=== PATIENT | female | born 1995 | race Caucasian/White ===

== ENCOUNTER 2018-01-06 15:37 | Emergency (ER) | payer BC, OTHER ==
[~2018-01-06] VITALS: Ht 177.8 cm; Wt 95.5 kg
[~2018-01-06 15:37] MED LIST: NITR100C11 PO
[2018-01-06 15:46] VITALS: BP 159/102
[2018-01-06] MEDS ORDERED: LORazepam 1 MG tablet PO ONE (15:55)
[2018-01-06] MEDS ORDERED: FLUO20CA39 PO (20:23)
== END 2018-01-06 20:42 | disposition home or self-care (01) ==
LOC: EEVIPCON 15:37 → ER 15:38
DX: F41.9 Anxiety disorder, unspecified (principal); R11.2 Nausea with vomiting, unspecified; Z88.0 Allergy status to penicillin; Z79.899 Other long term (current) drug therapy
CPT/HCPCS: 99284

== ENCOUNTER 2019-03-22 16:58 | Emergency (ER) | payer BC, MEDICAID, OTHER ==
[~2019-03-22] VITALS: Ht 175.3 cm; Wt 102.3 kg
[~2019-03-22 16:58] MED LIST changes: +ONDA8TAB9 PO
[2019-03-22 17:49] LABS: BASOPHILS # (AUTO) 0.1 X10'3 (0-0.2); BASOPHILS % (AUTO) 0.4 % (0-1); EOSINOPHILS % (AUTO) 0 % (0-6); HEMATOCRIT 43.6 % (35.0-45.0); HEMOGLOBIN 14.1 g/dl (12.0-16.0); LYMPHOCYTES # (AUTO) 1.2 X10'3 (1.1-4.8); LYMPHOCYTES % (AUTO) 7.9 % (21-51); MEAN CORPUSCULAR HEMOGLOBIN 29.4 PG (27.0-31.0); MEAN CORPUSCULAR HGB CONC 32.4 g/dL (33.0-36.5); MEAN CORPUSCULAR VOLUME 90.8 FL (78-98); MEAN PLATELET VOLUME 8.5 FL (7.4-10.4); MONOCYTES # (AUTO) 0.2 X10'3 (0-0.9); MONOCYTES % (AUTO) 1.2 % (2-12); NEUTROPHILS # (AUTO) 13.4 X10'3 (1.8-7.7); NEUTROPHILS % (AUTO) 90.5 % (42-75); PLATELET COUNT 339 X10'3 (140-440); RED BLOOD COUNT 4.81 X10'6 (4.20-5.60); RED CELL DISTRIBUTION WIDTH 13.8 % (11.5-14.5); WHITE BLOOD COUNT 14.8 X10'3 (4.5-11.0)
[2019-03-22 18:02] LABS: ALANINE AMINOTRANSFERASE 39 U/L (12-78); ALBUMIN 4.2 G/DL (3.4-5.0); ALKALINE PHOSPHATASE 88 IU/L (46-116); AMYLASE 36 U/L (25-115); ANION GAP 13 (8-16); ASPARTATE AMINO TRANSFERASE 19 U/L (10-37); BILIRUBIN,TOTAL 0.3 MG/DL (0.1-1.0); BLOOD UREA NITROGEN 13 MG/DL (7-18); CHLORIDE 104 MMOL/L (99-107); CREATININE 0.81 MG/DL (0.40-0.90); GLUCOSE 127 MG/DL (70-104); LIPASE 122 U/L (73-393); POTASSIUM 3.7 MMOL/L (3.5-5.1); SODIUM 141 MMOL/L (135-145); TOTAL PROTEIN 8.5 G/DL (6.4-8.2); eGFR 87 ML/MIN
[2019-03-22] MEDS ORDERED: ondansetron/PF 4mg/2ml inj IV ONE ×2 (18:25→19:25)
[2019-03-22] MEDS ORDERED: normal saline 1000ML IV soln IVB ONE (18:25)
[2019-03-22 19:10] LABS: URINE HCG NEGATIVE (NEG)
[2019-03-22 19:17] LABS: CLARITY,URINE CLEAR (Clear); COLOR,URINE YELLOW (Yellow); GLUCOSE, URINE NEGATIVE (Neg); KETONES,URINE 40 mg/dl (Neg); LEUKOCYTE ESTERASE ,URINE NEGATIVE (Neg); NITRITES, URINE NEGATIVE (Neg); OCCULT BLOOD,URINE NEGATIVE (Neg); PH,URINE 6.5 (4.8-8.0); PROTEIN,URINE 30 mg/dl (Neg); UROBILINOGEN,URINE 0.2 E.U/dL (0.2-1.0)
[2019-03-22] MEDS ORDERED: iohexol 300mg/ml 100ml inj. ONE (19:18)
[2019-03-22 19:19] LABS: UA COLLECTION TYPE CLN CATCH MIDSTREAM
[2019-03-22 19:22] LABS: MUCUS STRANDS MANY /LPF (Neg); SQUAMOUS EPITHELIAL CELL,UR MANY /LPF (FEW)
[2019-03-22 19:23] LABS: BACTERIA,URINE FEW /HPF (Neg); RBC,URINE 0-2 /HPF (0-2); WBC,URINE 0-4 /HPF (0-4)
[2019-03-22] MEDS ORDERED: metoclopramide 5 mg/ml inj IV ONE (20:45)
[2019-03-22] MEDS ORDERED: ketorolac trometh. 30mg/ml inj. IV ONE (20:45)
[2019-03-22] MEDS ORDERED: ONDA4TAB6 PO (20:54)
[2019-03-22] MEDS ORDERED: HYDR-4383 PO (20:54)
[2019-03-22 21:16] VITALS: BP 112/93
== END 2019-03-22 21:18 | disposition home or self-care (01) ==
LOC: ER 16:58 → EEVIPCON 16:58 → ER 21:18
DX: A08.4 Viral intestinal infection, unspecified (principal); R10.30 Lower abdominal pain, unspecified; R11.2 Nausea with vomiting, unspecified; Z88.0 Allergy status to penicillin
CPT/HCPCS: 36415; 74177; 80053; 81001; 81025; 82150; 83690; 85025; 85610; 96374; 96375; 96376; 99284; J1885; J2405; J2765; J7030; Q9967

== ENCOUNTER 2019-03-24 00:18 | Emergency (ER) | payer BC ==
[~2019-03-24] VITALS: Ht 175.3 cm; Wt 102.3 kg
[~2019-03-24 00:18] MED LIST changes: +HYDR-4383 PO; +ONDA4TAB6 PO
[2019-03-24] MEDS ORDERED: morphine 4 MG/ML inj SYRINge IV PRN (00:40)
[2019-03-24] MEDS ORDERED: normal saline 1000ML IV soln IVB ONE (00:40)
[2019-03-24] MEDS ORDERED: ondansetron/PF 4mg/2ml inj IV ONE (00:40)
[2019-03-24 00:59] LABS: BASOPHILS % (AUTO) 0.3 % (0-1); EOSINOPHILS % (AUTO) 0.1 % (0-6); HEMATOCRIT 38.8 % (35.0-45.0); HEMOGLOBIN 13.1 g/dl (12.0-16.0); LYMPHOCYTES # (AUTO) 1.5 X10'3 (1.1-4.8); LYMPHOCYTES % (AUTO) 11.9 % (21-51); MEAN CORPUSCULAR HEMOGLOBIN 30.4 PG (27.0-31.0); MEAN CORPUSCULAR HGB CONC 33.8 g/dL (33.0-36.5); MEAN CORPUSCULAR VOLUME 89.9 FL (78-98); MEAN PLATELET VOLUME 8.5 FL (7.4-10.4); MONOCYTES # (AUTO) 0.3 X10'3 (0-0.9); MONOCYTES % (AUTO) 2.4 % (2-12); NEUTROPHILS # (AUTO) 10.8 X10'3 (1.8-7.7); NEUTROPHILS % (AUTO) 85.3 % (42-75); PLATELET COUNT 278 X10'3 (140-440); RED BLOOD COUNT 4.32 X10'6 (4.20-5.60); WHITE BLOOD COUNT 12.7 X10'3 (4.5-11.0)
[2019-03-24 01:11] LABS: ALANINE AMINOTRANSFERASE 31 U/L (12-78); ALBUMIN/GLOBULIN RATIO 1.1 (1.1-1.5); ALKALINE PHOSPHATASE 77 IU/L (46-116); ANION GAP 10 (8-16); ASPARTATE AMINO TRANSFERASE 12 U/L (10-37); BILIRUBIN,TOTAL 0.4 MG/DL (0.1-1.0); BLOOD UREA NITROGEN 18 MG/DL (7-18); BUN/CREATININE RATIO 21.4 (6.6-38.0); CHLORIDE 105 MMOL/L (99-107); CREATININE 0.84 MG/DL (0.40-0.90); GLUCOSE 117 MG/DL (70-104); LIPASE 110 U/L (73-393); POTASSIUM 3.4 MMOL/L (3.5-5.1); SODIUM 141 MMOL/L (135-145); TOTAL CARBON DIOXIDE 26.3 MMOL/L (24-32); TOTAL PROTEIN 7.8 G/DL (6.4-8.2); eGFR 83 ML/MIN
[2019-03-24] MEDS ORDERED: diphenhydrAMINE 50 mg/ml inj IV ONE (01:15)
[2019-03-24] MEDS ORDERED: proCHLORperazine 10 MG/2 ml inj IV ONE (01:15)
[2019-03-24] MEDS ORDERED: PROC-8 PO (02:54)
[2019-03-24 03:08] VITALS: BP 106/83
[2019-03-24 03:10] LABS: CLARITY,URINE CLEAR (Clear); COLOR,URINE YELLOW (Yellow); GLUCOSE, URINE NEGATIVE (Neg); KETONES,URINE 40 mg/dl (Neg); LEUKOCYTE ESTERASE ,URINE SMALL (Neg); NITRITES, URINE NEGATIVE (Neg); OCCULT BLOOD,URINE NEGATIVE (Neg); PROTEIN,URINE NEGATIVE (Neg); UROBILINOGEN,URINE 0.2 E.U/dL (0.2-1.0)
[2019-03-24 03:11] LABS: URINE HCG NEGATIVE (NEG)
[2019-03-24 03:15] LABS: UA COLLECTION TYPE VOIDED
[2019-03-24 03:18] LABS: MUCUS STRANDS MODERATE /LPF (Neg)
[2019-03-24 03:19] LABS: BACTERIA,URINE FEW /HPF (Neg); RBC,URINE 0-2 /HPF (0-2); SQUAMOUS EPITHELIAL CELL,UR MODERATE /LPF (FEW); WBC,URINE 0-4 /HPF (0-4)
== END 2019-03-24 03:17 | disposition home or self-care (01) ==
LOC: ER 00:19
DX: R11.2 Nausea with vomiting, unspecified (principal); R19.7 Diarrhea, unspecified; R10.31 Right lower quadrant pain; Z88.0 Allergy status to penicillin; Z79.899 Other long term (current) drug therapy
CPT/HCPCS: 36415; 80053; 81001; 81025; 83690; 85025; 85610; 87088; 96361; 96374; 96375; 99283; J0780; J1200; J2270; J2405; J7030

== ENCOUNTER 2019-09-04 06:59 | Emergency (ER) | payer BC, OTHER ==
[~2019-09-04] VITALS: Ht 172.7 cm; Wt 90.0 kg
[~2019-09-04 06:59] MED LIST changes: +PROC-8 PO
[2019-09-04 07:00] VITALS: BP 151/88
[2019-09-04] MEDS ORDERED: ibuprofen tablet 400 MG TABLET PO ONE (07:15)
[2019-09-04] MEDS ORDERED: AZIT250T83 PO (07:28)
[2019-09-04] MEDS ORDERED: azithromycin 250mg tablet PO ONE (07:35)
== END 2019-09-04 07:46 | disposition home or self-care (01) ==
LOC: ER 06:59
DX: J06.9 Acute upper respiratory infection, unspecified (principal); M54.5 Low back pain; Z86.2 Personal history of diseases of the blood and blood-forming organs and certain disorders involving the immune mechanism; Z88.0 Allergy status to penicillin; Z79.899 Other long term (current) drug therapy
CPT/HCPCS: 71046; 99283

== ENCOUNTER 2019-11-02 10:18 | Emergency (ER) | payer OTHER ==
[~2019-11-02] VITALS: Ht 172.7 cm; Wt 90.9 kg
[2019-11-02 10:36] LABS: BASOPHILS # (AUTO) 0.1 X10'3 (0-0.2); EOSINOPHILS # (AUTO) 0.2 X10'3 (0-0.9); EOSINOPHILS % (AUTO) 1.5 % (0-6); HEMATOCRIT 41.5 % (35.0-45.0); LYMPHOCYTES # (AUTO) 1.7 X10'3 (1.1-4.8); LYMPHOCYTES % (AUTO) 13.8 % (21-51); MEAN CORPUSCULAR HEMOGLOBIN 30.3 PG (27.0-31.0); MEAN CORPUSCULAR HGB CONC 33.7 g/dL (33.0-36.5); MEAN CORPUSCULAR VOLUME 89.9 FL (78-98); MEAN PLATELET VOLUME 8.5 FL (7.4-10.4); MONOCYTES # (AUTO) 0.3 X10'3 (0-0.9); MONOCYTES % (AUTO) 2.5 % (2-12); NEUTROPHILS # (AUTO) 10.2 X10'3 (1.8-7.7); NEUTROPHILS % (AUTO) 81.2 % (42-75); PLATELET COUNT 316 X10'3 (140-440); RED BLOOD COUNT 4.61 X10'6 (4.20-5.60); RED CELL DISTRIBUTION WIDTH 13.7 % (11.5-14.5); WHITE BLOOD COUNT 12.6 X10'3 (4.5-11.0)
[2019-11-02 10:52] LABS: ALANINE AMINOTRANSFERASE 15 U/L (12-78); ALBUMIN 4.3 G/DL (3.4-5.0); ALBUMIN/GLOBULIN RATIO 1.2 (1.1-1.5); ALKALINE PHOSPHATASE 81 IU/L (46-116); AMYLASE 24 U/L (25-115); ANION GAP 13 (8-16); ASPARTATE AMINO TRANSFERASE 14 U/L (10-37); BILIRUBIN,TOTAL 0.4 MG/DL (0.1-1.0); BLOOD UREA NITROGEN 10 MG/DL (7-18); BUN/CREATININE RATIO 13.5 (6.6-38.0); CALCIUM 9.9 MG/DL (8.5-10.1); CHLORIDE 105 MMOL/L (99-107); CREATININE 0.74 MG/DL (0.40-0.90); GLUCOSE 139 MG/DL (70-104); LIPASE 95 U/L (73-393); POTASSIUM 3.9 MMOL/L (3.5-5.1); SODIUM 143 MMOL/L (135-145); TOTAL PROTEIN 7.8 G/DL (6.4-8.2); eGFR > 90 ML/MIN
[2019-11-02] MEDS ORDERED: ondansetron/PF 4mg/2ml inj IV ONE ×2 (11:10→14:10)
[2019-11-02] MEDS ORDERED: normal saline 1000ml 1,000 ML IV ONE (11:10)
[2019-11-02 12:27] LABS: URINE HCG NEGATIVE (NEG)
[2019-11-02] MEDS ORDERED: proCHLORperazine 10 MG/2 ml inj IV ONE (12:30)
[2019-11-02] MEDS ORDERED: LORazepam 2 mg/ml vial IV ONE (12:30)
[2019-11-02] MEDS ORDERED: diphenhydrAMINE 50 mg/ml inj IV ONE (12:30)
[2019-11-02 12:52] LABS: CLARITY,URINE SLIGHTLY CLOUDY (Clear); COLOR,URINE YELLOW (Yellow); GLUCOSE, URINE NEGATIVE (Neg); KETONES,URINE >=80 mg/dl (Neg); LEUKOCYTE ESTERASE ,URINE NEGATIVE (Neg); NITRITES, URINE NEGATIVE (Neg); OCCULT BLOOD,URINE NEGATIVE (Neg); PH,URINE 6.5 (4.8-8.0); PROTEIN,URINE TRACE mg/dl (Neg); UROBILINOGEN,URINE 0.2 E.U/dL (0.2-1.0)
[2019-11-02 12:53] LABS: UA COLLECTION TYPE CLN CATCH MIDSTREAM
[2019-11-02 13:08] LABS: BACTERIA,URINE FEW /HPF (Neg); RBC,URINE NONE SEEN /HPF (0-2); WBC,URINE 0-4 /HPF (0-4)
[2019-11-02 13:09] LABS: MUCUS STRANDS MANY /LPF (Neg); SQUAMOUS EPITHELIAL CELL,UR FEW /LPF (FEW)
--- NOTE | 2019-11-02 14:15 | NUR ---
PT DRANK APPROX 6OZ OF WATER AND WAS TOLLERATING. PT SAT UP AFTERWARDS AND NOW WITH HICCUPS AND NAUSEA. REPORTED TO PROVIDER ALVAREZ, PT TO RECEIVE ANOTHER DOSE OF ZOFRAN AND AFTERWARD TO TRY AND EAT A SALTINE CRACKER.
[2019-11-02] MEDS ORDERED: PROM12.512 PO (15:24)
[2019-11-02 15:52] VITALS: BP 143/76
[2019-11-05] MEDS ORDERED: ONDA4TAB6 PO (00:09)
== END 2019-11-02 15:56 | disposition home or self-care (01) ==
LOC: ER 10:18 → EEVIPCON 10:18 → ER 15:56
DX: K52.9 Noninfective gastroenteritis and colitis, unspecified (principal); R10.31 Right lower quadrant pain; R10.13 Epigastric pain; R11.10 Vomiting, unspecified; Z88.0 Allergy status to penicillin
CPT/HCPCS: 36415; 80053; 81001; 81025; 82150; 83690; 85025; 87502; 87503; 96361; 96374; 96375; 96376; 99284; J0780; J1200; J2060; J2405; J7030

== ENCOUNTER 2019-11-06 07:15 | Emergency (ER) | payer OTHER ==
[~2019-11-06] VITALS: Ht 172.7 cm; Wt 90.9 kg
[~2019-11-06 07:15] MED LIST changes: +PROM12.512 PO
[2019-11-06] MEDS ORDERED: metoclopramide 5 mg/ml inj IV ONE (07:20)
[2019-11-06] MEDS ORDERED: normal saline 1000ML IV soln IVB ONE (07:20)
[2019-11-06] MEDS ORDERED: morphine 2 MG/ML inj. syringe IV ONE ×2 (08:15→09:55)
--- NOTE | 2019-11-06 09:18 | NUR ---
Pt states that she is getting nauseous again and the pain is increasing again. Dr Miller made aware.
[2019-11-06] MEDS ORDERED: ondansetron/PF 4mg/2ml inj IV ONE (09:20)
--- NOTE | 2019-11-06 09:41 | NUR ---
Pt given ice chips.
[2019-11-06] MEDS ORDERED: diphenoxylate/atropine tablet (Lomotil) PO ONE (09:55)
[2019-11-06] MEDS ORDERED: PROC25SU31 RC (11:23)
[2019-11-06 11:54] VITALS: BP 130/68
== END 2019-11-06 11:55 | disposition home or self-care (01) ==
LOC: ER 07:15
DX: T62.8X1A Toxic effect of other specified noxious substances eaten as food, accidental (unintentional), initial encounter (principal); K52.9 Noninfective gastroenteritis and colitis, unspecified; R11.2 Nausea with vomiting, unspecified; E66.9 Obesity, unspecified; Z88.0 Allergy status to penicillin; Y92.89 Other specified places as the place of occurrence of the external cause
CPT/HCPCS: 96361; 96374; 96375; 96376; 99285; J2270; J2405; J2765; J7030; 99284

== ENCOUNTER 2019-11-08 08:38 | Inpatient (IN) | payer OTHER ==
[~2019-11-08] VITALS: Ht 172.7 cm; Wt 90.9 kg
[~2019-11-08 08:38] MED LIST changes: +PROC25SU31 RC
[2019-11-08] MEDS ORDERED: ringers solution, lacted 1,000 ML IV ONE (09:00)
[2019-11-08 09:30] LABS: BASOPHILS % (AUTO) 0.4 % (0-1); EOSINOPHILS # (AUTO) 0.2 X10'3 (0-0.9); EOSINOPHILS % (AUTO) 1.9 % (0-6); HEMATOCRIT 43.4 % (35.0-45.0); HEMOGLOBIN 14.5 g/dl (12.0-16.0); LYMPHOCYTES # (AUTO) 1.6 X10'3 (1.1-4.8); LYMPHOCYTES % (AUTO) 12.9 % (21-51); MEAN CORPUSCULAR HEMOGLOBIN 30.1 PG (27.0-31.0); MEAN CORPUSCULAR HGB CONC 33.3 g/dL (33.0-36.5); MEAN CORPUSCULAR VOLUME 90.4 FL (78-98); MEAN PLATELET VOLUME 9.1 FL (7.4-10.4); MONOCYTES # (AUTO) 0.5 X10'3 (0-0.9); MONOCYTES % (AUTO) 3.8 % (2-12); NEUTROPHILS # (AUTO) 10.2 X10'3 (1.8-7.7); PLATELET COUNT 297 X10'3 (140-440); RED CELL DISTRIBUTION WIDTH 14.3 % (11.5-14.5); WHITE BLOOD COUNT 12.6 X10'3 (4.5-11.0)
[2019-11-08] MEDS ORDERED: ondansetron/PF 4mg/2ml inj IV ONE (09:55)
[2019-11-08] MEDS: morphine 4 MG/ML inj SYRINge IV PRN ×2 (10:12→16:52)
[2019-11-08 10:20] LABS: URINE HCG NEGATIVE (NEG)
[2019-11-08 10:22] LABS: CLARITY,URINE CLEAR (Clear); COLOR,URINE YELLOW (Yellow); GLUCOSE, URINE NEGATIVE (Neg); KETONES,URINE 15 mg/dl (Neg); LEUKOCYTE ESTERASE ,URINE NEGATIVE (Neg); NITRITES, URINE NEGATIVE (Neg); OCCULT BLOOD,URINE NEGATIVE (Neg); PH,URINE 7.5 (4.8-8.0); PROTEIN,URINE NEGATIVE (Neg); UROBILINOGEN,URINE 0.2 E.U/dL (0.2-1.0)
[2019-11-08 10:23] LABS: UA COLLECTION TYPE CLN CATCH MIDSTREAM
--- NOTE | 2019-11-08 10:28 | NUR ---
TO CT SCAN VIA WHEELCHAIR WITH TECH
--- NOTE | 2019-11-08 10:36 | NUR ---
back from ct scan in stable condtion.
[2019-11-08] MEDS ORDERED: fentaNYL/PF 50MCG/1 ML 2ML syringe IV ONE (10:45)
[2019-11-08 10:50] LABS: ALANINE AMINOTRANSFERASE 15 U/L (12-78); ALBUMIN 4.1 G/DL (3.4-5.0); ALBUMIN/GLOBULIN RATIO 1.2 (1.1-1.5); ALKALINE PHOSPHATASE 77 IU/L (46-116); ANION GAP 9 (8-16); ASPARTATE AMINO TRANSFERASE 11 U/L (10-37); BILIRUBIN,TOTAL 0.3 MG/DL (0.1-1.0); BLOOD UREA NITROGEN 7 MG/DL (7-18); BUN/CREATININE RATIO 9.2 (6.6-38.0); CALCIUM 9.3 MG/DL (8.5-10.1); CHLORIDE 105 MMOL/L (99-107); CREATININE 0.76 MG/DL (0.40-0.90); GLUCOSE 110 MG/DL (70-104); LIPASE 102 U/L (73-393); MAGNESIUM 1.9 MG/DL (1.5-2.4); POTASSIUM 3.3 MMOL/L (3.5-5.1); SODIUM 141 MMOL/L (135-145); TOTAL CARBON DIOXIDE 26.6 MMOL/L (24-32); TOTAL PROTEIN 7.5 G/DL (6.4-8.2); eGFR > 90 ML/MIN
[2019-11-08] MEDS ORDERED: metroNIDAZOLE-Flagyl 500mg/NS 100 ML IV STA (11:01)
[2019-11-08] MEDS ORDERED: ciprofloxacin lact 400MG/200ML 200 ML IV STA (11:01)
[2019-11-08] MEDS ORDERED: acetaminophen 325mg tablet PO PRN ×2 (11:45)
[2019-11-08] MEDS ORDERED: HYDROcodone/acetaminophen 5mg/325mg tablet PO PRN (11:45)
[2019-11-08] MEDS ORDERED: morphine 2 MG/ML inj. syringe IV PRN ×2 (11:45)
[2019-11-08] MEDS ORDERED: mag hydrox/Alum hydrox/simeth 30ml oral suspension PO PRN (11:45)
[2019-11-08] MEDS ORDERED: magnesium hydroxide 30ml (MOM) UD suspension PO PRN (11:45)
[2019-11-08] MEDS ORDERED: NO HOME MEDS (13:13)
[2019-11-08] MEDS: dextrose 5%-1/2 normal saline 1,000 ML IV SCH ×2 (13:13→19:52)
[2019-11-08] MEDS: ondansetron/PF 4mg/2ml inj IV PRN ×2 (14:07→20:56)
--- NOTE | 2019-11-08 16:11 | NUR ---
Received report from Julianna RN in ER Via phone will assume patient care when patient comes to the floor. Julianna will ask Dr Fragoso re: electrolye replacement protocol K+3.3. I will call RN when room is ready.
[2019-11-08] MEDS: metoclopramide 5 mg/ml inj IV PRN (16:52)
[2019-11-08 17:00] VITALS: BP 154/84
[2019-11-08] MEDS ORDERED: potassium Cl 20 mEq SR tablet PO PRN (18:40)
--- NOTE | 2019-11-08 19:00 | NUR ---
Problems reprioritized. Patient report given, questions answered & plan of care reviewed with Karrie PETERSON.
[2019-11-08] MEDS: levoFLOXACIN-Levaquin 500mg/D5 100 ML IV SCH (19:51)
[2019-11-08 20:00] VITALS: BP_SYST 112; BP_SYST 129; BP_SYST 143; BP_DIAS 59; BP_DIAS 75; BP_DIAS 90
[2019-11-08] MEDS: potassium CL 10mEq/100ml bag 100 ML IV PRN ×2 (20:07→23:29)
--- NOTE | 2019-11-08 20:51 | NUR ---
Patient in room [facility]. I have received report from KRISTEN Tee and had the opportunity to ask questions and assume patient care. Addendum: 11/08/19 at 2051 by Karrie Kyle RN Amended: Links added.
[2019-11-08] MEDS: metroNIDAZOLE-Flagyl 500mg/NS 100 ML IV SCH (23:27)
[2019-11-09] MEDS: Melatonin 3mg tablet PO SCH ×2 (00:22→21:00)
[2019-11-09 00:49] VITALS: BP 119/57
[2019-11-09] MEDS: HYDROcodone/acetaminophen 10/325mg tab PO PRN (02:44)
[2019-11-09 05:30] LABS: BASOPHILS % (AUTO) 0.5 % (0-1); EOSINOPHILS # (AUTO) 0.2 X10'3 (0-0.9); EOSINOPHILS % (AUTO) 1.8 % (0-6); HEMATOCRIT 39.6 % (35.0-45.0); HEMOGLOBIN 13.4 g/dl (12.0-16.0); LYMPHOCYTES # (AUTO) 2.4 X10'3 (1.1-4.8); LYMPHOCYTES % (AUTO) 23.8 % (21-51); MEAN CORPUSCULAR HEMOGLOBIN 30.8 PG (27.0-31.0); MEAN CORPUSCULAR HGB CONC 33.8 g/dL (33.0-36.5); MEAN CORPUSCULAR VOLUME 91.3 FL (78-98); MONOCYTES # (AUTO) 0.6 X10'3 (0-0.9); MONOCYTES % (AUTO) 5.8 % (2-12); NEUTROPHILS # (AUTO) 6.9 X10'3 (1.8-7.7); NEUTROPHILS % (AUTO) 68.1 % (42-75); PLATELET COUNT 253 X10'3 (140-440); RED BLOOD COUNT 4.34 X10'6 (4.20-5.60); WHITE BLOOD COUNT 10.1 X10'3 (4.5-11.0)
[2019-11-09 05:33] LABS: ALBUMIN 3.5 G/DL (3.4-5.0); ANION GAP 7 (8-16); BLOOD UREA NITROGEN 4 MG/DL (7-18); BUN/CREATININE RATIO 5.8 (6.6-38.0); CALCIUM 8.8 MG/DL (8.5-10.1); CHLORIDE 106 MMOL/L (99-107); CREATININE 0.69 MG/DL (0.40-0.90); GLUCOSE 111 MG/DL (70-104); POTASSIUM 3.5 MMOL/L (3.5-5.1); SODIUM 140 MMOL/L (135-145); TOTAL CARBON DIOXIDE 26.6 MMOL/L (24-32); eGFR > 90 ML/MIN
--- NOTE | 2019-11-09 06:15 | NUR ---
Problems reprioritized. Patient report given, questions answered & plan of care reviewed with KRISTEN MYLES. Addendum: 11/09/19 at 0616 by Karrie Kyle RN Amended: Links added.
[2019-11-09 07:00] VITALS: BP 90/71
[2019-11-09] MEDS: ondansetron/PF 4mg/2ml inj IV PRN ×3 (07:46→22:42)
[2019-11-09] MEDS: metroNIDAZOLE-Flagyl 500mg/NS 100 ML IV SCH (07:46)
[2019-11-09] MEDS: levoFLOXACIN-Levaquin 500mg/D5 100 ML IV SCH (09:20)
[2019-11-09] MEDS: dextrose 5%-1/2 normal saline 1,000 ML IV SCH ×3 (09:20→20:15)
[2019-11-09] MEDS: metoclopramide 5 mg/ml inj IV PRN ×2 (09:49→18:31)
[2019-11-09 11:00] VITALS: BP 167/88
[2019-11-09] MEDS: morphine 2 MG/ML inj. syringe IV PRN ×3 (11:05→20:18)
[2019-11-09] MEDS: metroNIDAZOLE 500mg tablet PO SCH (16:34)
--- NOTE | 2019-11-09 18:06 | NUR ---
Problems reprioritized. Patient report given, questions answered & plan of care reviewed with KRISTEN Silva.
--- NOTE | 2019-11-09 19:13 | NUR ---
Patient in room [facility]. I have received report from KRISTEN Cruz and had the opportunity to ask questions and assume patient care. Addendum: 11/09/19 at 1914 by Karrie Kyle RN Amended: Links added.
[2019-11-09 20:00] VITALS: BP 145/91
[2019-11-09] MEDS: lactobacillus rhamnosus 10,000 MMU CELLS/CAPSULE PO SCH (20:00)
[2019-11-09] MEDS: proCHLORperazine 10 MG/2 ml inj IV PRN (20:16)
[2019-11-09] MEDS ORDERED: LORazepam 1 MG tablet PO ONE (22:25)
[2019-11-10] MEDS: metroNIDAZOLE 500mg tablet PO SCH
[2019-11-10 00:58] VITALS: BP 155/98
[2019-11-10] MEDS: metoclopramide 5 mg/ml inj IV PRN ×2 (05:10→14:05)
[2019-11-10] MEDS: morphine 2 MG/ML inj. syringe IV PRN ×2 (05:15→13:23)
[2019-11-10] MEDS: dextrose 5%-1/2 normal saline 1,000 ML IV SCH ×2 (05:16→19:28)
[2019-11-10 05:57] LABS: BASOPHILS % (AUTO) 0.4 % (0-1); EOSINOPHILS # (AUTO) 0.1 X10'3 (0-0.9); EOSINOPHILS % (AUTO) 1.1 % (0-6); HEMATOCRIT 40.7 % (35.0-45.0); HEMOGLOBIN 13.7 g/dl (12.0-16.0); LYMPHOCYTES # (AUTO) 3.4 X10'3 (1.1-4.8); LYMPHOCYTES % (AUTO) 27.7 % (21-51); MEAN CORPUSCULAR HEMOGLOBIN 30.7 PG (27.0-31.0); MEAN CORPUSCULAR HGB CONC 33.7 g/dL (33.0-36.5); MEAN CORPUSCULAR VOLUME 91.1 FL (78-98); MEAN PLATELET VOLUME 8.9 FL (7.4-10.4); MONOCYTES # (AUTO) 0.7 X10'3 (0-0.9); MONOCYTES % (AUTO) 5.9 % (2-12); NEUTROPHILS # (AUTO) 7.9 X10'3 (1.8-7.7); NEUTROPHILS % (AUTO) 64.9 % (42-75); PLATELET COUNT 260 X10'3 (140-440); RED BLOOD COUNT 4.46 X10'6 (4.20-5.60); RED CELL DISTRIBUTION WIDTH 14.1 % (11.5-14.5); WHITE BLOOD COUNT 12.3 X10'3 (4.5-11.0)
[2019-11-10 06:24] LABS: ALBUMIN 3.5 G/DL (3.4-5.0); ANION GAP 8 (8-16); BLOOD UREA NITROGEN 3 MG/DL (7-18); BUN/CREATININE RATIO 4.3 (6.6-38.0); CALCIUM 9.2 MG/DL (8.5-10.1); CHLORIDE 106 MMOL/L (99-107); CREATININE 0.69 MG/DL (0.40-0.90); GLUCOSE 93 MG/DL (70-104); POTASSIUM 3.3 MMOL/L (3.5-5.1); SODIUM 143 MMOL/L (135-145); TOTAL CARBON DIOXIDE 28.9 MMOL/L (24-32); eGFR > 90 ML/MIN
--- NOTE | 2019-11-10 06:31 | NUR ---
Problems reprioritized. Patient report given, questions answered & plan of care reviewed with KRISTEN Dumont. Addendum: 11/10/19 at 0632 by Karrie Kyle RN Amended: Links added.
--- NOTE | 2019-11-10 06:41 | NUR ---
Patient in room [facility]. I have received report from VERONIKA PETERSON and had the opportunity to ask questions and assume patient care.
[2019-11-10 07:00] VITALS: BP 171/78
[2019-11-10] MEDS: lactobacillus rhamnosus 10,000 MMU CELLS/CAPSULE PO SCH ×2 (08:00→19:32)
[2019-11-10] MEDS: potassium CL 10mEq/100ml bag 100 ML IV PRN ×4 (08:28→19:26)
[2019-11-10] MEDS ORDERED: sincalide inj 1.8 MCG in normal saline 50ml IV soln 50 ML IV ONE (08:30)
[2019-11-10] MEDS: ondansetron/PF 4mg/2ml inj IV PRN ×2 (08:31→20:35)
[2019-11-10] MEDS: metroNIDAZOLE-Flagyl 500mg/NS 100 ML IV SCH ×2 (08:51→15:57)
[2019-11-10] MEDS: levoFLOXACIN-Levaquin 500mg/D5 100 ML IV SCH (09:41)
[2019-11-10] MEDS ORDERED: levoFLOXACIN 500mg tablet PO SCH (11:00)
[2019-11-10] MEDS: proCHLORperazine 10 MG/2 ml inj IV PRN (13:16)
[2019-11-10] MEDS ORDERED: LORazepam 2 mg/ml vial IV PRN (16:25)
--- NOTE | 2019-11-10 18:00 | NUR ---
Patient in room [facility]. I have received report from Julia PETERSON and had the opportunity to ask questions and assume patient care.
--- NOTE | 2019-11-10 18:30 | NUR ---
Problems reprioritized. Patient report given, questions answered & plan of care reviewed with LUCIO PETERSON.
[2019-11-10 20:00] VITALS: BP 128/70
[2019-11-10] MEDS: Melatonin 3mg tablet PO SCH (20:29)
[2019-11-11] VITALS (22 sets, daily range): BP systolic 104–149; BP diastolic 58–99
[2019-11-11] MEDS: morphine 2 MG/ML inj. syringe IV PRN ×4 (00:25→19:23)
[2019-11-11] MEDS: metroNIDAZOLE-Flagyl 500mg/NS 100 ML IV SCH ×4 (00:28→23:32)
[2019-11-11] MEDS: ondansetron/PF 4mg/2ml inj IV PRN ×3 (04:19→23:20)
[2019-11-11] MEDS: dextrose 5%-1/2 normal saline 1,000 ML IV SCH (05:26)
--- NOTE | 2019-11-11 06:09 | NUR ---
Problems reprioritized. Patient report given, questions answered & plan of care reviewed with Lily PETERSON.
[2019-11-11 06:15] LABS: BASOPHILS % (AUTO) 0.3 % (0-1); EOSINOPHILS # (AUTO) 0.1 X10'3 (0-0.9); EOSINOPHILS % (AUTO) 0.7 % (0-6); HEMATOCRIT 41.8 % (35.0-45.0); HEMOGLOBIN 14.2 g/dl (12.0-16.0); LYMPHOCYTES # (AUTO) 2.3 X10'3 (1.1-4.8); LYMPHOCYTES % (AUTO) 22.9 % (21-51); MEAN CORPUSCULAR HEMOGLOBIN 30.9 PG (27.0-31.0); MEAN CORPUSCULAR VOLUME 90.9 FL (78-98); MONOCYTES # (AUTO) 0.6 X10'3 (0-0.9); MONOCYTES % (AUTO) 6.1 % (2-12); PLATELET COUNT 252 X10'3 (140-440); RED CELL DISTRIBUTION WIDTH 14.1 % (11.5-14.5)
[2019-11-11 06:17] LABS: ALBUMIN 3.9 G/DL (3.4-5.0); ANION GAP 9 (8-16); BLOOD UREA NITROGEN 3 MG/DL (7-18); BUN/CREATININE RATIO 3.9 (6.6-38.0); CALCIUM 9.7 MG/DL (8.5-10.1); CHLORIDE 105 MMOL/L (99-107); CREATININE 0.76 MG/DL (0.40-0.90); GLUCOSE 118 MG/DL (70-104); POTASSIUM 3.1 MMOL/L (3.5-5.1); SODIUM 139 MMOL/L (135-145); TOTAL CARBON DIOXIDE 24.9 MMOL/L (24-32); eGFR > 90 ML/MIN
[2019-11-11] MEDS: levoFLOXACIN-Levaquin 500mg/D5 100 ML IV SCH (08:18)
[2019-11-11] MEDS: lactobacillus rhamnosus 10,000 MMU CELLS/CAPSULE PO SCH ×2 (08:19→20:00)
[2019-11-11] MEDS: potassium Cl 20 mEq SR tablet PO PRN ×3 (08:19→17:56)
[2019-11-11] MEDS: metoclopramide 5 mg/ml inj IV PRN ×2 (08:23→19:40)
[2019-11-11] MEDS: proCHLORperazine 10 MG/2 ml inj IV PRN (10:13)
[2019-11-11] MEDS: Potassium Cl inj 20 MEQ in ringers solution, lacted 1,000 ML IV SCH ×2 (12:47→19:56)
[2019-11-11] MEDS ORDERED: famotidine/PF 10 mg/ml inj IV ONE (13:00)
[2019-11-11] MEDS ORDERED: ceFAZolin 1000mg inj ONE (13:05)
[2019-11-11] MEDS ORDERED: BUPIVAcaine/PF 2.5 mg/ml (0.25%) 30ml vial ONE ×2 (13:05→13:15)
--- NOTE | 2019-11-11 13:19 | NUR ---
Pt. taken down to OR for sx.
--- NOTE | 2019-11-11 13:40 | NUR ---
Problems reprioritized. Patient report given, questions answered & plan of care reviewed with Albin PETERSON in recovery.
[2019-11-11] MEDS ORDERED: sevoflurane 250ml liquid IH ONE (13:48)
[2019-11-11] MEDS ORDERED: propofol inj 20 ML IV ONE (13:52)
[2019-11-11] MEDS ORDERED: rocuronium 10mg/ml inj IV ONE (13:52)
[2019-11-11] MEDS ORDERED: midazolam 2 mg/2 ml injection ONE (13:52)
[2019-11-11] MEDS ORDERED: fentaNYL/PF 50MCG/1 ML 2ML syringe ONE (13:52)
[2019-11-11] MEDS ORDERED: clindamycin phosphate 150mg/ml inj. ONE (14:05)
[2019-11-11] MEDS ORDERED: metoprolol tartrate 1mg/ml inj IV ONE (14:21)
[2019-11-11] MEDS ORDERED: ondansetron/PF 4mg/2ml inj IV PRN ×2 (14:30→14:50)
[2019-11-11] MEDS ORDERED: ringers solution, lacted 1,000 ML IV SCH (14:30)
[2019-11-11] MEDS ORDERED: morphine 2 MG/ML inj. syringe IV PRN (14:30)
[2019-11-11] MEDS ORDERED: proCHLORperazine 10 MG/2 ml inj IV PRN (14:30)
[2019-11-11] MEDS ORDERED: meperidine/PF 25mg/ml syringe IV PRN ×2 (14:30)
[2019-11-11] MEDS ORDERED: acetaminophen 1,000mg/100ml IV 100 ML IV ONE (14:40)
[2019-11-11] MEDS ORDERED: neostigmine methylsulfate 1 MG/ML 10ml vial ONE (14:42)
[2019-11-11] MEDS ORDERED: glycopyrrolate 0.2mg/ml inj ONE (14:42)
[2019-11-11] MEDS ORDERED: HYDROcodone/acetaminophen 10/325mg tab PO PRN (14:50)
--- NOTE | 2019-11-11 14:53 | NUR ---
Received from OR via surgical bed, accompanied by Anesthesiologist Alfonso and report given by Anesthesiolgist. Mask to 10L and all VS WNL, HR slightly tachy r/t to pain. Pt complains of some nausea will administer zofran, responding to questions, tylenol almost finished infusing. Pulses palpable, abdomen soft. SCDs on, no barbosa catheter.
[2019-11-11] MEDS ORDERED: meperidine/PF 25mg/ml syringe ONE (15:00)
[2019-11-11] MEDS: meperidine/PF 25mg/ml syringe IV PRN ×2 (15:06→15:18)
[2019-11-11] MEDS ORDERED: ondansetron/PF 4mg/2ml inj IM ONE (15:10)
[2019-11-11] MEDS ORDERED: ondansetron/PF 4mg/2ml inj IV ONE (15:15)
[2019-11-11] MEDS: morphine 4 MG/ML inj SYRINge IV PRN ×2 (15:43→16:08)
--- NOTE | 2019-11-11 15:55 | NUR ---
Called Dr Hamilton to request something else for pain and relayed pain meds received already but that patient remains uncomfortable. He states okay to give toradol 30mg IV. Orders placed, will administer.
[2019-11-11] MEDS ORDERED: ketorolac trometh. 30mg/ml inj. IV ONE (16:20)
--- NOTE | 2019-11-11 16:33 | NUR ---
Report called to receiving nurse. Transferred via surgical bed to [facility]. Belongings remain in patient's room. Special Issues communicated to receiving nurse Lily PETERSON. Post op VS remain WNL, BLL call light within reach, chart given to RN. Pain much more controlled after toradol given and patient states she is 4/10 more comfortable. Family at bedside.
--- NOTE | 2019-11-11 16:53 | NUR ---
Post ops started. Pt. stable, SCDs on and working. NA aware.
[2019-11-11] MEDS: HYDROcodone/acetaminophen 10/325mg tab PO PRN (17:24)
--- NOTE | 2019-11-11 18:00 | NUR ---
Patient in room [facility]. I have received report from Lily PETERSON and had the opportunity to ask questions and assume patient care.
--- NOTE | 2019-11-11 19:09 | NUR ---
Gave report to Jenn PETERSON.
[2019-11-11] MEDS: Melatonin 3mg tablet PO SCH (20:02)
[2019-11-11] MEDS: ringers solution, lacted 1,000 ML IV SCH (20:15)
[2019-11-12] VITALS: BP 147/95
[2019-11-12] MEDS: morphine 2 MG/ML inj. syringe IV PRN ×3 (00:38→06:43)
--- NOTE | 2019-11-12 06:35 | NUR ---
Patient in room [facility]. I have received report from Jenn PETERSON and had the opportunity to ask questions and assume patient care.
--- NOTE | 2019-11-12 06:49 | NUR ---
Problems reprioritized. Patient report given, questions answered & plan of care reviewed with Tiffanie PETERSON.
[2019-11-12 07:00] VITALS: BP 134/81
[2019-11-12] MEDS: levoFLOXACIN-Levaquin 500mg/D5 100 ML IV SCH (07:42)
[2019-11-12] MEDS: ringers solution, lacted 1,000 ML IV SCH (07:42)
[2019-11-12] MEDS: lactobacillus rhamnosus 10,000 MMU CELLS/CAPSULE PO SCH (07:42)
[2019-11-12] MEDS: metroNIDAZOLE-Flagyl 500mg/NS 100 ML IV SCH (08:42)
[2019-11-12] MEDS: HYDROcodone/acetaminophen 10/325mg tab PO PRN (08:42)
[2019-11-12] MEDS ORDERED: morphine 2 MG/ML inj. syringe IV PRN ×2 (10:05→10:25)
[2019-11-12] MEDS ORDERED: HYDROcodone/acetaminophen 5mg/325mg tablet PO PRN (10:25)
[2019-11-12] MEDS ORDERED: HYDROcodone/acetaminophen 10/325mg tab PO PRN (10:25)
[2019-11-12 12:00] VITALS: BP 135/77
[2019-11-12] MEDS ORDERED: METR-159 PO (14:29)
[2019-11-12] MEDS ORDERED: OMEP20CA15 PO (14:29)
[2019-11-12] MEDS ORDERED: ACET-1008 PO (14:29)
[2019-11-12] MEDS ORDERED: IBUP-860 PO (14:44)
--- NOTE | 2019-11-12 15:05 | NUR ---
Patient discharged at this time, patient taught all discharge instructions and dressing and bathing care. Medications called into [facility].
== END 2019-11-12 15:05 | disposition home or self-care (01) | DRG 419 ==
LOC: ER 08:38 → ED HOLD 11:48 → SUR 3N 17:02 → OBSVTOIN 11-09 14:00
PROVIDERS: ADMIT Internal Medicine; ATTEND Internal Medicine
PROC: 0FT44ZZ Resection of Gallbladder, Percutaneous Endoscopic Approach (ICD-10-PCS; principal; 2019-11-11 13:48)
DX: K82.8 Other specified diseases of gallbladder (principal); E86.0 Dehydration; E87.6 Hypokalemia; E66.9 Obesity, unspecified; K52.9 Noninfective gastroenteritis and colitis, unspecified; J45.909 Unspecified asthma, uncomplicated; Z88.0 Allergy status to penicillin; Z68.30 Body mass index [BMI] 30.0-30.9, adult
CPT/HCPCS: 96361; 96365; 96366; 96367; 96375; 96376; 99285; Z7506; Z7508; 36415; 74176; 76700; 78227; 80048; 80053; 81003; 81025; 82948; 83690; 83735; 84702; 85025; 85730; 86885; 86900; 86901; 87045; 87046; 87081; A4215; A4618; A7000; A9537; G0378; J0131; J0690; J0744; J0780; J1885; J1956; J2060; J2175; J2250; J2270; J2405; J2704; J2710; J2765; J3010; J3480; J3490; J7120

== ENCOUNTER 2019-11-16 12:56 | Inpatient (IN) | payer OTHER ==
[~2019-11-16] VITALS: Ht 172.7 cm; Wt 108.9 kg
[~2019-11-16 12:56] MED LIST changes: +ACET-1008 PO; -HYDR-4383 PO; +IBUP-860 PO; +METR-159 PO; -NITR100C11 PO; +OMEP20CA15 PO; -ONDA4TAB6 PO; -ONDA8TAB9 PO; -PROC-8 PO; -PROC25SU31 RC; -PROM12.512 PO
[2019-11-16] MEDS ORDERED: ondansetron 4mg rapidly disintigrating tab PO ONE (13:00)
[2019-11-16] MEDS ORDERED: normal saline 1000ML IV soln IVB ONE ×2 (13:10→18:50)
[2019-11-16] MEDS ORDERED: ondansetron/PF 4mg/2ml inj IV ONE ×3 (13:10→18:35)
[2019-11-16 13:53] LABS: BASOPHILS % (AUTO) 0.2 % (0-1); EOSINOPHILS # (AUTO) 0.2 X10'3 (0-0.9); EOSINOPHILS % (AUTO) 1.5 % (0-6); HEMATOCRIT 43.3 % (35.0-45.0); HEMOGLOBIN 14.3 g/dl (12.0-16.0); LYMPHOCYTES % (AUTO) 9.1 % (21-51); MEAN CORPUSCULAR HEMOGLOBIN 30.1 PG (27.0-31.0); MEAN CORPUSCULAR HGB CONC 33.1 g/dL (33.0-36.5); MEAN CORPUSCULAR VOLUME 90.9 FL (78-98); MEAN PLATELET VOLUME 8.9 FL (7.4-10.4); MONOCYTES # (AUTO) 0.3 X10'3 (0-0.9); MONOCYTES % (AUTO) 2.7 % (2-12); NEUTROPHILS # (AUTO) 9.7 X10'3 (1.8-7.7); NEUTROPHILS % (AUTO) 86.5 % (42-75); PLATELET COUNT 272 X10'3 (140-440); RED BLOOD COUNT 4.76 X10'6 (4.20-5.60); RED CELL DISTRIBUTION WIDTH 14.3 % (11.5-14.5); WHITE BLOOD COUNT 11.2 X10'3 (4.5-11.0)
[2019-11-16 14:02] LABS: ALANINE AMINOTRANSFERASE 28 U/L (12-78); ALBUMIN 4.1 G/DL (3.4-5.0); ALBUMIN/GLOBULIN RATIO 1.1 (1.1-1.5); ALKALINE PHOSPHATASE 89 IU/L (46-116); ANION GAP 10 (8-16); ASPARTATE AMINO TRANSFERASE 10 U/L (10-37); BILIRUBIN,TOTAL 0.3 MG/DL (0.1-1.0); BLOOD UREA NITROGEN 8 MG/DL (7-18); BUN/CREATININE RATIO 11.4 (6.6-38.0); CHLORIDE 106 MMOL/L (99-107); GLUCOSE 110 MG/DL (70-104); LIPASE 189 U/L (73-393); POTASSIUM 3.8 MMOL/L (3.5-5.1); SODIUM 141 MMOL/L (135-145); TOTAL CARBON DIOXIDE 25.3 MMOL/L (24-32); TOTAL PROTEIN 7.7 G/DL (6.4-8.2); eGFR > 90 ML/MIN
[2019-11-16 14:50] LABS: H PYLORI ANTIBODY NEGATIVE (Neg)
[2019-11-16] MEDS ORDERED: famotidine/PF 10 mg/ml inj IV ONE (15:40)
[2019-11-16] MEDS ORDERED: morphine 4 MG/ML inj SYRINge IV ONE ×2 (15:40→18:35)
[2019-11-16] MEDS ORDERED: pantoprazole 40 MG vial IV ONE (15:40)
[2019-11-16] MEDS ORDERED: iohexol 300mg/ml 100ml inj. ONE (16:09)
[2019-11-16] MEDS ORDERED: METR-159 PO (20:29)
[2019-11-16] MEDS ORDERED: mag hydrox/Alum hydrox/simeth 30ml oral suspension PO PRN (22:00)
[2019-11-16] MEDS ORDERED: acetaminophen 325mg tablet PO PRN (22:00)
[2019-11-16] MEDS ORDERED: morphine 2 MG/ML inj. syringe IV PRN ×2 (22:00)
[2019-11-16] MEDS ORDERED: magnesium hydroxide 30ml (MOM) UD suspension PO PRN (22:00)
[2019-11-16] MEDS ORDERED: potassium CL 10mEq/100ml bag 100 ML IV PRN ×2 (22:00)
--- NOTE | 2019-11-16 22:56 | NUR ---
attempted to call report to bedside rn; she will return this expert medical writer's call in 10min.
--- NOTE | 2019-11-16 23:15 | NUR ---
Received report from JOB HANDKRISTEN Barrientos. Patient to follow shortly.
--- NOTE | 2019-11-16 23:30 | NUR ---
Patient arrived to floor via W/C. Pt. A&Ox4 and in no apparent pain or distress at this time. Settled into room and given hospital gown to change into. VS taken. Patient refused to have the 2 RN skin check.
[2019-11-16] MEDS: normal saline 1000ml 1,000 ML IV SCH (23:38)
[2019-11-16 23:41] VITALS: BP 118/62
[2019-11-16] MEDS: ondansetron/PF 4mg/2ml inj IV PRN (23:54)
[2019-11-17] MEDS ORDERED: metroNIDAZOLE 500mg tablet PO SCH
[2019-11-17] MEDS: metroNIDAZOLE-Flagyl 500mg/NS 100 ML IV SCH ×2 (00:48→07:21)
[2019-11-17 04:59] LABS: BASOPHILS # (AUTO) 0.1 X10'3 (0-0.2); BASOPHILS % (AUTO) 0.4 % (0-1); EOSINOPHILS # (AUTO) 0.1 X10'3 (0-0.9); HEMATOCRIT 37.1 % (35.0-45.0); HEMOGLOBIN 12.3 g/dl (12.0-16.0); LYMPHOCYTES # (AUTO) 2.7 X10'3 (1.1-4.8); LYMPHOCYTES % (AUTO) 22.1 % (21-51); MEAN CORPUSCULAR HEMOGLOBIN 30.2 PG (27.0-31.0); MEAN CORPUSCULAR HGB CONC 33.2 g/dL (33.0-36.5); MEAN CORPUSCULAR VOLUME 90.9 FL (78-98); MONOCYTES # (AUTO) 0.8 X10'3 (0-0.9); MONOCYTES % (AUTO) 6.3 % (2-12); NEUTROPHILS # (AUTO) 8.5 X10'3 (1.8-7.7); NEUTROPHILS % (AUTO) 70.2 % (42-75); PLATELET COUNT 238 X10'3 (140-440); RED BLOOD COUNT 4.08 X10'6 (4.20-5.60); RED CELL DISTRIBUTION WIDTH 14.2 % (11.5-14.5); WHITE BLOOD COUNT 12.1 X10'3 (4.5-11.0)
[2019-11-17 05:18] LABS: ALANINE AMINOTRANSFERASE 21 U/L (12-78); ALBUMIN 3.2 G/DL (3.4-5.0); ALBUMIN/GLOBULIN RATIO 1.1 (1.1-1.5); ALKALINE PHOSPHATASE 66 IU/L (46-116); ANION GAP 6 (8-16); ASPARTATE AMINO TRANSFERASE 11 U/L (10-37); BILIRUBIN,TOTAL 0.3 MG/DL (0.1-1.0); BLOOD UREA NITROGEN 5 MG/DL (7-18); BUN/CREATININE RATIO 8.6 (6.6-38.0); CALCIUM 8.6 MG/DL (8.5-10.1); CHLORIDE 108 MMOL/L (99-107); CREATININE 0.58 MG/DL (0.40-0.90); GLUCOSE 89 MG/DL (70-104); POTASSIUM 3.4 MMOL/L (3.5-5.1); SODIUM 140 MMOL/L (135-145); TOTAL CARBON DIOXIDE 26.1 MMOL/L (24-32); TOTAL PROTEIN 6.2 G/DL (6.4-8.2); eGFR > 90 ML/MIN
--- NOTE | 2019-11-17 06:30 | NUR ---
Problems reprioritized. Patient report given, questions answered & plan of care reviewed with Adan PETERSON.
--- NOTE | 2019-11-17 07:00 | NUR ---
Patient in room [facility]. I have received report from Deborah PETERSON and had the opportunity to ask questions and assume patient care.
[2019-11-17] MEDS: ondansetron/PF 4mg/2ml inj IV PRN (07:28)
[2019-11-17] MEDS: normal saline 1000ml 1,000 ML IV SCH (07:56)
[2019-11-17 08:00] VITALS: BP 124/71
[2019-11-17] MEDS ORDERED: heparin, porcine 5000 units/ml vial SQ SCH (08:00)
[2019-11-17] MEDS ORDERED: NORMAL SALINE IV ONE (08:00)
[2019-11-17] MEDS ORDERED: K and/or MAG REPLACEMENT MC SCH (08:00)
[2019-11-17] MEDS ORDERED: SINCALIDE IV ONE (08:00)
--- NOTE | 2019-11-17 10:28 | NUR ---
Medication given in nucmed
[2019-11-17] MEDS ORDERED: chloestyramine/aspartame 4gm packet PO ONE (11:35)
[2019-11-17] MEDS ORDERED: potassium Cl 20 mEq SR tablet PO PRN ×2 (12:15)
[2019-11-17] MEDS ORDERED: QUELT PO (13:47)
[2019-11-17] MEDS ORDERED: ONDA4TAB12 PO (13:47)
--- NOTE | 2019-11-17 14:07 | NUR ---
Malnutrition consult: Patient admitted with c/o RUQ pain following recent cholecystectomy. Per H&P pt was eating well however with intractable N/V the day of admission. Per chair scaled wt hx, pt weighed 108.7 kg 05/09/18 and 102 kg 11/04/19, current chair scaled wt is 108.9 kg. Pt with no apparent wt loss per current and scaled wt hx. Patient's diet has just been advanced to clear liquid from NPO, pending documentation of PO intake. Pt with no decrease in muscle strength or edema. Per ED report pt appears well developed/well nourished. Pt currently does not meet criteria for malnutrition. Will continue to follow. Addendum: 11/17/19 at [address] Amended: Links added.
--- NOTE | 2019-11-17 14:49 | NUR ---
pT DISCHARGED IN STABLE CONDITION WITH BELONGINGS AND DISCHARGED INFO. pT WHEELCHAIRED OUT TO AWAITING RIDE.
[2019-11-17] MEDS ORDERED: chloestyramine/aspartame 4gm packet PO SCH (16:00)
== END 2019-11-17 14:49 | disposition home or self-care (01) | DRG 446 ==
LOC: ER 12:56 → ED HOLD 21:56 → SUR 3N 23:16
PROVIDERS: ADMIT Internal Medicine; ATTEND Family Medicine
PROC: BW211ZZ Computerized Tomography (CT Scan) of Abdomen and Pelvis using Low Osmolar Contrast (ICD-10-PCS; principal; 2019-11-16)
DX: K91.5 Postcholecystectomy syndrome (principal); E27.9 Disorder of adrenal gland, unspecified; E87.6 Hypokalemia; N83.12 Corpus luteum cyst of left ovary; K52.9 Noninfective gastroenteritis and colitis, unspecified; Z88.0 Allergy status to penicillin; Z79.899 Other long term (current) drug therapy
CPT/HCPCS: 36415; 74177; 78226; 80053; 83605; 83690; 85025; 86677; 87081; A9537; C9113; G0378; J1644; J2270; J2405; J3480; J3490; J7030; Q9967

== ENCOUNTER 2019-12-22 13:24 | Emergency (ER) | payer OTHER ==
[~2019-12-22] VITALS: Ht 172.7 cm; Wt 108.4 kg
[~2019-12-22 13:24] MED LIST changes: -ACET-1008 PO; -IBUP-860 PO; -METR-159 PO; -OMEP20CA15 PO; +ONDA4TAB12 PO; +ONDA8TAB6 PO; +QUELT PO
[2019-12-22 13:53] LABS: BASOPHILS # (AUTO) 0.1 X10'3 (0-0.2); BASOPHILS % (AUTO) 0.5 % (0-1); EOSINOPHILS % (AUTO) 0.2 % (0-6); HEMATOCRIT 40.7 % (35.0-45.0); HEMOGLOBIN 13.5 g/dl (12.0-16.0); LYMPHOCYTES # (AUTO) 1.7 X10'3 (1.1-4.8); LYMPHOCYTES % (AUTO) 15.2 % (21-51); MEAN CORPUSCULAR HEMOGLOBIN 30.2 PG (27.0-31.0); MEAN CORPUSCULAR VOLUME 91.5 FL (78-98); MEAN PLATELET VOLUME 8.8 FL (7.4-10.4); MONOCYTES # (AUTO) 0.4 X10'3 (0-0.9); MONOCYTES % (AUTO) 3.3 % (2-12); NEUTROPHILS # (AUTO) 9.1 X10'3 (1.8-7.7); NEUTROPHILS % (AUTO) 80.8 % (42-75); PLATELET COUNT 284 X10'3 (140-440); RED BLOOD COUNT 4.45 X10'6 (4.20-5.60); RED CELL DISTRIBUTION WIDTH 13.3 % (11.5-14.5); WHITE BLOOD COUNT 11.2 X10'3 (4.5-11.0)
[2019-12-22 14:09] LABS: ALANINE AMINOTRANSFERASE 15 U/L (12-78); ALBUMIN 4.1 G/DL (3.4-5.0); ALKALINE PHOSPHATASE 87 IU/L (46-116); ANION GAP 8 (8-16); ASPARTATE AMINO TRANSFERASE 14 U/L (10-37); BILIRUBIN,TOTAL 0.4 MG/DL (0.1-1.0); BLOOD UREA NITROGEN 8 MG/DL (7-18); BUN/CREATININE RATIO 10.5 (6.6-38.0); CALCIUM 9.7 MG/DL (8.5-10.1); CHLORIDE 105 MMOL/L (99-107); CREATININE 0.76 MG/DL (0.40-0.90); GLUCOSE 100 MG/DL (70-104); LIPASE 73 U/L (73-393); POTASSIUM 3.3 MMOL/L (3.5-5.1); SODIUM 141 MMOL/L (135-145); TOTAL CARBON DIOXIDE 27.6 MMOL/L (24-32); TOTAL PROTEIN 8.2 G/DL (6.4-8.2); eGFR > 90 ML/MIN
[2019-12-22] MEDS ORDERED: proCHLORperazine 10 MG/2 ml inj IV ONE (14:15)
[2019-12-22] MEDS ORDERED: diphenhydrAMINE 50 mg/ml inj IV ONE (14:15)
[2019-12-22] MEDS ORDERED: potassium Cl 20 mEq SR tablet PO ONE (14:15)
[2019-12-22] MEDS ORDERED: normal saline 1000ml 1,000 ML IV ONE ×2 (14:15→15:20)
[2019-12-22 14:59] LABS: URINE HCG NEGATIVE (NEG)
[2019-12-22 15:00] LABS: CLARITY,URINE CLEAR (Clear); COLOR,URINE YELLOW (Yellow); GLUCOSE, URINE NEGATIVE (Neg); KETONES,URINE >=80 mg/dl (Neg); LEUKOCYTE ESTERASE ,URINE NEGATIVE (Neg); NITRITES, URINE NEGATIVE (Neg); OCCULT BLOOD,URINE MODERATE (Neg); PH,URINE 6.5 (4.8-8.0); PROTEIN,URINE TRACE mg/dl (Neg)
[2019-12-22 15:01] LABS: UA COLLECTION TYPE CLN CATCH MIDSTREAM
[2019-12-22 15:14] LABS: BACTERIA,URINE FEW /HPF (Neg); MUCUS STRANDS MANY /LPF (Neg); RBC,URINE 0-2 /HPF (0-2); SQUAMOUS EPITHELIAL CELL,UR FEW /LPF (FEW)
[2019-12-22] MEDS ORDERED: ZIPR20CA2 PO (15:16)
[2019-12-22 16:22] VITALS: BP 136/77
== END 2019-12-22 16:24 | disposition home or self-care (01) ==
LOC: EEVIPCON 13:24 → ER 13:24
DX: R11.2 Nausea with vomiting, unspecified (principal); Z86.2 Personal history of diseases of the blood and blood-forming organs and certain disorders involving the immune mechanism; Z90.49 Acquired absence of other specified parts of digestive tract; Z88.0 Allergy status to penicillin; Z79.899 Other long term (current) drug therapy
CPT/HCPCS: 36415; 80053; 81001; 81025; 83690; 85025; 87088; 96361; 96374; 96375; 99284; J0780; J1200; J7030

== ENCOUNTER 2020-02-02 20:16 | Emergency (ER) | payer OTHER ==
[~2020-02-02] VITALS: Ht 175.3 cm; Wt 97.7 kg
[~2020-02-02 20:16] MED LIST changes: +ZIPR20CA2 PO
[2020-02-02] MEDS ORDERED: TETanus/Pertussis (Acell)/Diphther VAC/PF (Tdap-Adult) 0.5ml syringe IMVAC ONE (20:35)
[2020-02-02] MEDS ORDERED: LIDOcaine 1% w/epiNEPHrine 1:200,000 30ml vial SQ ONE (20:35)
[2020-02-02] MEDS ORDERED: CEPH500C5 PO (21:49)
[2020-02-02 22:11] VITALS: BP 126/79
== END 2020-02-02 22:13 | disposition home or self-care (01) ==
LOC: ER 20:17
DX: S81.821A Laceration with foreign body, right lower leg, initial encounter (principal); M25.561 Pain in right knee; Z90.49 Acquired absence of other specified parts of digestive tract; Z88.0 Allergy status to penicillin; Z79.2 Long term (current) use of antibiotics; Z79.899 Other long term (current) drug therapy; W01.0XXA Fall on same level from slipping, tripping and stumbling without subsequent striking against object, initial encounter; Y93.89 Activity, other specified; Y92.89 Other specified places as the place of occurrence of the external cause; Y99.8 Other external cause status
CPT/HCPCS: 12002; 12032; 90471; 90715; 99283; 99284

== ENCOUNTER 2020-02-16 10:58 | Outpatient (CLI) | payer OTHER ==
[~2020-02-16 10:58] MED LIST changes: +CEPH500C5 PO
[2020-02-16 12:32] LABS: ALANINE AMINOTRANSFERASE 14 U/L (12-78); ALBUMIN 3.9 G/DL (3.4-5.0); ALKALINE PHOSPHATASE 88 IU/L (46-116); ANION GAP 8 (8-16); ASPARTATE AMINO TRANSFERASE 12 U/L (10-37); BILIRUBIN,TOTAL 0.4 MG/DL (0.1-1.0); BLOOD UREA NITROGEN 6 MG/DL (7-18); BUN/CREATININE RATIO 7.1 (6.6-38.0); CALCIUM 9.7 MG/DL (8.5-10.1); CHLORIDE 107 MMOL/L (99-107); CHOL/HDL RATIO 5.3 (0.00-4.99); CHOLESTEROL 202 MG/DL (0-200); CREATININE 0.84 MG/DL (0.40-0.90); GLUCOSE 97 MG/DL (70-104); HDL CHOLESTEROL 38 MG/DL (35-60); LDL CHOLESTEROL 138 MG/DL (50-100); POTASSIUM 4.3 MMOL/L (3.5-5.1); SODIUM 142 MMOL/L (135-145); TOTAL CARBON DIOXIDE 27.4 MMOL/L (24-32); TOTAL PROTEIN 7.7 G/DL (6.4-8.2); TRIGLYCERIDES 132 MG/DL (20-135); eGFR 83 ML/MIN
== END 2020-02-16 23:59 | disposition home or self-care (01) ==
LOC: LAB 10:58
PROVIDERS: ATTEND Family Medicine
DX: Z00.00 Encounter for general adult medical examination without abnormal findings (principal); E78.5 Hyperlipidemia, unspecified; D64.9 Anemia, unspecified; Z79.899 Other long term (current) drug therapy
CPT/HCPCS: 36415; 80053; 80061; 84439; 84443

== ENCOUNTER 2020-12-20 11:41 | Outpatient (CLI) | payer OTHER ==
[~2020-12-20 11:41] MED LIST changes: +CEPH-585 PO; -CEPH500C5 PO
== END 2020-12-20 23:59 | disposition home or self-care (01) ==
LOC: LAB 11:41
PROVIDERS: ATTEND Internal Medicine Infectious Disease
DX: Z01.84 Encounter for antibody response examination (principal)

== ENCOUNTER 2021-09-26 16:01 | Outpatient (CLI) | payer OTHER ==
[~2021-09-26 16:01] MED LIST changes: -CEPH-585 PO
== END 2021-09-26 23:59 | disposition home or self-care (01) ==
LOC: LAB 16:01
PROVIDERS: ATTEND Internal Medicine Infectious Disease
DX: U07.1 COVID-19 (principal)
CPT/HCPCS: 87635; C9803